=== PATIENT | male | born 1975 | race Caucasian/White ===

== ENCOUNTER 2020-01-23 15:29 | Emergency (ER) | payer OTHER, SELFPAY ==
[2020-01-23 15:41] VITALS: BP 133/82; PULSE 93; RESP 16; TEMP 37.2; O2SAT 100
--- NOTE | 2020-01-23 15:45 | ED.ABDPAIN ---
HPI - Abdominal Pain General Chief Complaint: Abdominal Pain Stated Complaint: Abd pain/diarrhea Time Seen by Provider: 01/23/20 15:51 Source: patient Mode of arrival: ambulatory Limitations: no limitations History of Present Illness HPI narrative: Josse baker a 44 yo male with a PMH of seasonal allergies who comes to express care with abdominal pain and diarrhea. Has had episodic abdominal pain and diarrhea over the last few months. States the pain is now gone in the left lower quadrant. He has not changed medications are is aware of any other changes that would cause diarrhea. Has not tried any medication Related Data Home Medications Medication Instructions Recorded Confirmed No Home Medications 01/23/20 01/23/20 Allergies Allergy/AdvReac Type Severity Reaction Status Date / Time No Known Allergies Allergy Verified 01/23/20 15:55 Review of Systems Review of Systems: Narrative: CONSTITUTIONAL: Denies fever, chills, sweats. EYES: Denies visual changes, redness, discharge. ENT: Denies rhinorrhea, congestion, sore throat, otalgia. CARDIOVASCULAR: Denies chest pain, palpitations, edema. RESPIRATORY: Denies dyspnea, wheezing, cough GASTROINTESTINAL: Denies abdominal pain, nausea, vomiting, has diarrhea. Intermittent left lower quadrant abdominal pain GENITOURINARY: Denies dysuria, hematuria, abnormal discharge SKIN: Denies rash or itching. NEUROLOGIC: Denies numbness, or focal weakness. PSYCHIATRIC: Denies anxiety or depression. PMFSH Family History Family History Other Hypertension Social History Social History (Updated 01/23/20 @ 16:00 by Veronica Moran CNP) Smoking packs per day: 1 Smoking cigarettes per day: 20.0 Smoking status: Current every day smoker Alcohol intake: never Comments At time of signature, I agree with nursing past medical, surgical, social and family history. There is no relevant family history pertinent to the presenting complaint. Exam Narrative: Exam Narrative: GENERAL: This is a well-nourished, well-developed patient, in mild distress. Patient is very anxious HEAD: normocephalic, atraumatic. EYES: Sclera clear/white. Vision is grossly intact. EARS: External ears normal, . Hearing grossly intact. NOSE: External nose normal without nasal discharge, nares without redness, no rhinorrhea. THROAT: Mucous membranes moist, NECK: Neck supple, CARDIOVASCULAR: Regular rate and rhythm without murmurs, gallops, or rubs. RESPIRATORY: Clear to auscultation. Breath sounds equal bilaterally. No wheezes, rales, or rhonchi. GASTROINTESTINAL: Abdomen soft, non-tender, no CVA tenderness; no left lower quadrant pain (as reported in CC) SKIN: warm, intact with no suspicious lesions or rash, good texture and turgor. NEURO: awake, alert, and oriented to person, place and time. There were no obvious focal neurologic abnormalities. Steady gait EXTREMITIES: Normal range of motion. BACK: Nontender without deformity Course Course Emergency Course: Patient denies dysuria does have a discussion about recurrent diarrhea and abdominal pain. Recommended patient follow-up with PCP and if becomes worse runs fever or develops intractable nausea vomiting to go to the ER Vital Signs Vital signs: Vital Signs Temperature 98.9 F 01/23/20 15:41 Pulse Rate 93 01/23/20 15:41 Respiratory Rate 16 01/23/20 15:41 Blood Pressure 133/82 01/23/20 15:41 Pulse Oximetry 100 01/23/20 15:41 Temperature 98.9 F 01/23/20 15:41 Pulse Rate 93 01/23/20 15:41 Respiratory Rate 16 01/23/20 15:41 Blood Pressure 133/82 01/23/20 15:41 Pulse Oximetry 100 01/23/20 15:41 MDM - Abdominal Pain Differential Diagnosis Differential diagnosis: Likely abdominal pain, constipation, diverticulitis, gastroenteritis, pancreatitis and other Discharge Plan Discharge Clinical Impression: Gastroenteritis Patient Disposition: H
== END 2020-01-23 16:05 | disposition home or self-care (01) ==
PROVIDERS: Emergency Provider Nurse Practitioner
DX: K52.9 Noninfective gastroenteritis and colitis, unspecified (principal); F17.210 Nicotine dependence, cigarettes, uncomplicated
CPT/HCPCS: 99211; G0463

== ENCOUNTER 2020-11-02 15:41 | Emergency (ER) | payer OTHER, SELFPAY ==
[2020-11-02 15:48] VITALS: BP 148/83; PULSE 109; RESP 18; TEMP 36.2; O2SAT 100
--- NOTE | 2020-11-02 16:20 | ED.EAR ---
HPI - Ear Problem General Chief complaint: Upper Respiratory Infection Stated complaint: head and ears stuffed and runny nose Time Seen by Provider: 11/02/20 16:15 Source: patient, RN notes reviewed and old records reviewed Mode of arrival: ambulatory Limitations: no limitations History of Present Illness HPI Narrative: 45 year old male who presents to [facility] care with complaints of head and ears feeling clogged with nasal drainage that is clear for the past 2 days. Patient also reports that his chest feels congested and his throat is sore. Patient states he does not know of any fever but states that he has had intermittent chills. He reports that he has taken decongestants, antihistamines and expectorants for his symptoms with no resolution. He states that his daughter was ill with similar symptoms. Patient states that he has had both Covid vaccines. MD Complaint: ear pain and other (congestion to ears and sinus, congestion of chest) Location: bilateral (pressure) Duration: constant Severity: moderate Relieving factors: nothing Exacerbating factors: nothing Discharge from ear: Reports no Associated symptoms ear: rhinorrhea and other (ear pressure, facial pressure, fatigue, sore throat) Treatment prior to arrival: other (OTC decogestants and antihistamines and expectorants) Related Data Allergies Allergy/AdvReac Type Severity Reaction Status Date / Time No Known Allergies Allergy Verified 11/02/20 15:53 Review of Systems Review of Systems: Narrative: CONSTITUTIONAL: Unknown fever,positive chills, or sweats. EYES: Denies visual changes, redness, or discharge. ENT: Positive rhinorrhea, congestion, sore throat, and otalgia. CARDIOVASCULAR: Denies chest pain, palpitations, or edema. RESPIRATORY: Positive cough with congestion but denies dyspnea. GASTROINTESTINAL: Denies abdominal pain, nausea, vomiting, or diarrhea. GENITOURINARY: Denies dysuria or hematuria. SKIN: Denies rash or itching. MUSCULOSKELETAL: Denies back pain, joint pain, or myalgia. NEUROLOGIC: Denies headache, numbness, or weakness. PSYCHIATRIC: Denies anxiety or depression. All systems reviewed & are unremarkable except as noted in HPI and below PMFSH Past Medical History Medical History (Updated 11/02/20 @ 18:03 by Melva Macedo NP) Ear infection Seasonal allergies Surgical History Surgical History (Updated 11/02/20 @ 18:04 by Melva Macedo NP) History of appendectomy Family History Family History Other Hypertension Social History Social History (Updated 11/02/20 @ 18:05 by Melva Macedo NP) Smoking packs per day: 1 Smoking cigarettes per day: 20.0 Smoking status: Current every day smoker Alcohol intake: never Substance use: never Living arrangements: with family Gender identity (if verbalized by the patient): Male Comments At time of signature, agree with nursing past medical, surgical, social and family history. There is no relevant family history pertinent to the presenting complaint Exam Narrative: Exam Narrative: GENERAL: Well-appearing, well-nourished, and in no acute distress. HEAD: Normocephalic, atraumatic. EYES: PERRLA and EOMI. ENT: Nares red with rhinorrhea no epistaxis. Mucous membranes moist.TM's normal with dull light reflex, no ear drainage noted, throat red with no lesions or exudates some tonsillar enlargement. NECK: Supple.no lymphadenopathy CHEST: Clear to auscultation. No respiratory distress no wheezing or tachypnea, SAO2 100%on room air. HEART: Regular rate and rhythm. No murmur heard. Normal peripheral pulses. ABDOMEN: Soft, nontender, nondistended, normal active bowel sounds. EXTREMITIES: Normal range of motion. No edema. SKIN: Warm, dry, no rash. NEURO: No focal deficits. Alert and oriented x3. Course Vital Signs Vital signs: Vital Signs Temperature 36.2 C L 11/02/20 15:48 Pulse Rate 109 H 11/02/20 15:48 Respiratory Rat
== END 2020-11-02 16:35 | disposition home or self-care (01) ==
PROVIDERS: Emergency Provider Registered Nurse; PCP Internal Medicine
DX: R09.89 Other specified symptoms and signs involving the circulatory and respiratory systems (principal); J06.9 Acute upper respiratory infection, unspecified; F17.210 Nicotine dependence, cigarettes, uncomplicated
CPT/HCPCS: 87081; 87880; 99213; G0463

== ENCOUNTER 2021-04-29 16:42 | Emergency (ER) | payer OTHER, SELFPAY ==
[2021-04-29 17:00] VITALS: BP 136/88; PULSE 92; RESP 18; TEMP 37.1; O2SAT 98
--- NOTE | 2021-04-29 17:35 | ED.GENADULT ---
HPI - General Adult General Chief complaint: Upper Respiratory Infection Stated complaint: Sinus Pain Source: patient Mode of arrival: ambulatory Limitations: no limitations History of Present Illness HPI narrative: 45 y/o male. PMHx none reported. Presents to [facility] today with acute complaints of sinus congestion, maxillary facial pressure, and worsening nasal discharge in the past 1 week. He reports subtherapeutic relief to OTC remedies. No fever, chills. No cough, dyspnea, chest pain, edema. Client denies known ill contacts. He is without additional acute c/o illness upon PE. Related Data Allergies Allergy/AdvReac Type Severity Reaction Status Date / Time No Known Allergies Allergy Verified 04/29/21 17:28 Review of Systems Review of Systems: CONSTITUTIONAL: Denies fever, chills, sweats. EYES: Denies visual changes, redness, discharge. ENT: Positive rhinorrhea, congestion, facial pressure. No sore throat, otalgia. CARDIOVASCULAR: Denies chest pain, palpitations, edema. RESPIRATORY: Denies dyspnea, wheezing, cough GASTROINTESTINAL: Denies abdominal pain, nausea, vomiting, diarrhea. GENITOURINARY: Denies dysuria, hematuria, abnormal discharge SKIN: Denies rash or itching. MUSCULOSKELETAL: Denies acute back pain, joint pain, or myalgia. NEUROLOGIC: Denies numbness, or focal weakness. PSYCHIATRIC: Denies anxiety or depression. All systems reviewed & are unremarkable except as noted in HPI and below PMFSH Past Medical History Medical History Ear infection Seasonal allergies Surgical History Surgical History History of appendectomy Family History Family History Other Hypertension Social History Social History Smoking packs per day: 1 Smoking cigarettes per day: 20.0 Smoking status: Current every day smoker Alcohol intake: never Substance use: never Gender identity (if verbalized by the patient): Male Exam Narrative: GENERAL: This is a well-nourished, well-developed adult, in no apparent distress. HEAD: normocephalic, atraumatic. EYES: PERRL. Sclera clear/white. EARS: External ears normal, auditory canals clear and without drainage, TMs normal. NOSE: External nose normal. Positive Rhinorrhea, congestion. Maxillary facial pressure, no obstruction. THROAT: Mucous membranes moist, posterior pharynx clear. No exudates. NECK: Neck supple, non-tender without lymphadenopathy, masses or thyromegaly. CARDIOVASCULAR: Regular rate and rhythm without murmurs, gallops, or rubs. RESPIRATORY: Clear to auscultation. Breath sounds equal bilaterally. No wheezes, rales, or rhonchi. GASTROINTESTINAL: Abdomen soft, non-tender, nondistended. Bowel sounds are active. No guarding. SKIN: warm, intact with no suspicious lesions or rash, good texture and turgor. NEURO: Alert, active, and age appropriate. No focal neurologic deficits. Course Vital Signs Vital signs: Vital Signs Temperature 37.1 C 04/29/21 17:00 Pulse Rate 92 04/29/21 17:00 Respiratory Rate 18 04/29/21 17:00 Blood Pressure 136/88 04/29/21 17:00 Pulse Oximetry 98 04/29/21 17:00 Temperature 37.1 C 04/29/21 17:00 Pulse Rate 92 04/29/21 17:00 Respiratory Rate 18 04/29/21 17:00 Blood Pressure 136/88 04/29/21 17:00 Pulse Oximetry 98 04/29/21 17:00 Medical Decision Making MDM Narrative Medical decision making narrative: -OP POC, AVS, & Medication instructions reviewed. -Rest, fluids, may resume additional OTC remedies prn. -Suggest additional daily antihistamine for added benefit. -PCP F/U 1 WK. -ER W/Emergent health status changes. Pt agrees. Differential Diagnosis Differential Diagnosis: Differential Diagnosis: Consideration of the following conditions m
== END 2021-04-29 17:35 | disposition home or self-care (01) ==
PROVIDERS: Emergency Provider Nurse Practitioner Adult Health; PCP Internal Medicine
DX: J06.9 Acute upper respiratory infection, unspecified (principal); J01.00 Acute maxillary sinusitis, unspecified
CPT/HCPCS: 99213; G0463

== ENCOUNTER 2021-10-31 09:27 | Emergency (ER) | payer OTHER, SELFPAY ==
[2021-10-31 09:31] VITALS: BP 126/72; PULSE 104; RESP 20; TEMP 36.3; O2SAT 100
--- NOTE | 2021-10-31 09:37 | ED.URI ---
HPI - URI/Sore Throat General Chief Complaint: Upper Respiratory Infection Stated Complaint: head congestion w/ ear pain Time Seen by Provider: 10/31/21 09:48 Source: patient and RN notes reviewed Mode of arrival: ambulatory Limitations: no limitations History of Present Illness HPI Narrative: 45-year-old male presents with concern for 3-day history of sinus congestion and pressure, ear fullness and pressure. He denies ear pain or sinus pain. Denies sore throat, body aches, chills, fever, sweats, cough. Reports he took an [id number] sinus decongestant without relief. MD elicited complaint: nasal congestion and other (Ear pain) Related Data Allergies Allergy/AdvReac Type Severity Reaction Status Date / Time No Known Allergies Allergy Verified 07/19/21 15:10 Review of Systems Review of Systems: CONSTITUTIONAL: Reports malaise. Denies chills, sweats, or fever. EYES: Denies visual changes, redness, or discharge. ENT: Reports rhinorrhea, congestion, ear fullness. Denies sinus pain, otalgia and sore throat. CARDIOVASCULAR: Denies chest pain, palpitations, or edema. RESPIRATORY: Denies cough. Denies dyspnea. GASTROINTESTINAL: Denies abdominal pain, nausea, vomiting, diarrhea SKIN: Denies rash or itching. MUSCULOSKELETAL: Denies myalgia. NEUROLOGIC: Denies headache. All systems reviewed & are unremarkable except as noted in HPI and below PMFSH Past Medical History Medical History Ear infection Seasonal allergies Surgical History Surgical History History of appendectomy Family History Family History (System 07/19/21 @ 15:10 by Shay Leach) Other Hypertension Social History Social History (System 07/19/21 @ 15:10 by Shay Leach) Smoking packs per day: 1 Smoking cigarettes per day: 20.0 Smoking status: Current every day smoker Alcohol intake: never Substance use: never Gender identity (if verbalized by the patient): Male Comments At time of signature, agree with nursing past medical, surgical, social and family history. There is no relevant family history pertinent to the presenting complaint Exam Narrative: GENERAL: Non toxic appearing and in no acute distress. HEAD: Normocephalic EYES: PERRLA, conjunctivae clear ENT: Nares clear, turbinates unremarkable, clear discharge. Mucous membranes moist. TM pearly iraheta with sharp light reflex bilaterally; no tragal tenderness. Oropharynx not erythematous without lesions. Tonsils not enlarged and without exudate, no drooling, no hoarseness, no trismus, uvula midline. NECK: Supple. No lymphadenopathy CHEST: Clear to auscultation, breath sounds equal. No wheezing, rhonchi, rales, or stridor. No respiratory distress, speaks in full sentences. HEART: Regular rate and rhythm. No murmur heard. SKIN: Warm, dry, no rash. NEURO: Alert and oriented x3. PSYCH: Normal mood and affect Course Course Emergency Course: Patient is aware of diagnosis, understands and agrees to treatment plan. Anticipatory guidance given. Patient agrees to follow-up as directed and is aware of reasons to seek care at the emergency department. Portions of this record may have been created with voice recognition software Level of Care: Express Care Visit Vital Signs Vital signs: Vital Signs Temperature 97.3 F L 10/31/21 09:31 Pulse Rate 104 H 10/31/21 09:31 Respiratory Rate 20 10/31/21 09:31 Blood Pressure 126/72 10/31/21 09:31 Pulse Oximetry 100 10/31/21 09:31 Temperature 97.3 F L 10/31/21 09:31 Pulse Rate 104 H 10/31/21 09:31 Respiratory Rate 20 10/31/21 09:31 Blood Pressure 126/72 10/31/21 09:31 Pulse Oximetry 100 10/31/21 09:31 Reviewed. MDM - URI/Sore Throat MDM Narrative Medical decision making narrative: Differential diagnosis considered: Pacheco virus, strep pharyngitis, allergic rhinitis, upper respiratory tract infection, sin
== END 2021-10-31 10:06 | disposition home or self-care (01) ==
PROVIDERS: Emergency Provider Nurse Practitioner; PCP Internal Medicine
DX: U07.1 COVID-19 (principal); F17.210 Nicotine dependence, cigarettes, uncomplicated
CPT/HCPCS: 87426; 87804; 99213; C9803; G0463

== ENCOUNTER 2022-05-12 11:39 | Emergency (ER) | payer OTHER, SELFPAY ==
--- NOTE | ~2022-05-12 | XR_ITS ---
EXAMINATION: XR wrist LT min 3V DATE: 05/12/2022 12:05 INDICATION: Left wrist injury. TECHNIQUE: 4 views of left wrist were obtained. COMPARISON: None. FINDINGS: Bone alignment is normal. No fracture. There is mild osteoarthritis of first carpometacarpa l joint. IMPRESSION: 1. Mild osteoarthritis of first carpometacarpal joint. Reviewed, dictated and finalized at location [facility] [employer]
[2022-05-12 11:50] VITALS: BP 153/90; PULSE 100; RESP 16; TEMP 36.4; O2SAT 99
--- NOTE | 2022-05-12 12:48 | ED.UPPEXIN ---
HPI - Extremity Injury (Upper) General Chief Complaint: Extremity Injury, Upper Stated Complaint: pain in left wrist injury Time Seen by Provider: 05/12/22 12:44 Source: patient and RN notes reviewed Mode of arrival: ambulatory Limitations: no limitations History of Present Illness HPI narrative: 46-year-old male presents concern for left wrist pain after falling while roller skating 2 days ago. He reports he has pain when he flexes his wrist. He denies swelling, bruising, open scan, pain at rest. He denies any [id number] intervention MD complaint: injury to: left and wrist Related Data Allergies Allergy/AdvReac Type Severity Reaction Status Date / Time No Known Allergies Allergy Verified 07/19/21 15:10 Review of Systems Review of Systems: CONSTITUTIONAL: Denies malaise, chills, sweats, or fever. SKIN: Denies rash or itching, open skin, laceration, abrasion, redness, warmth, swelling. MUSCULOSKELETAL: Reports left wrist pain NEUROLOGIC: Denies numbness, weakness All systems reviewed & are unremarkable except as noted in HPI and below PMFSH Past Medical History Medical History Ear infection Seasonal allergies Surgical History Surgical History History of appendectomy Family History Family History (System 07/19/21 @ 15:10 by Shay Leach) Other Hypertension Social History Social History (System 07/19/21 @ 15:10 by Shay Leach) Smoking packs per day: 1 Smoking cigarettes per day: 20.0 Smoking status: Current every day smoker Alcohol intake: never Substance use: never Gender identity (if verbalized by the patient): Male Comments At time of signature, agree with nursing past medical, surgical, social and family history. There is no relevant family history pertinent to the presenting complaint Exam Narrative: GENERAL: Well-appearing, well-nourished, and in no acute distress. HEAD: Normocephalic, atraumatic. EYES: PERRLA, conjunctivae clear NECK: Supple. CHEST: Speaks in full sentences. No respiratory distress. HEART: Regular rate and rhythm. Normal and equal peripheral pulses. EXTREMITIES: Left wrist, hand, digits have normal strength and sensation, normal range of motion. No edema or ecchymosis. 5/5 strength with wrist and digit flexion and extension. Normal sensation with sensitivity to light touch and pain. No point tenderness. No open wounds, no skin tenting, no devitalized tissue or atrophy, no trophic changes, no obvious deformity, alignment normal, nearby joints and structures intact. Distal pulses palpable and equal bilaterally, skin warm, dry, pink. Capillary refill less than 3 seconds. SKIN: Warm, dry, no rash. NEURO: Alert and oriented x3. PSYCH: Normal mood and affect Course Course Emergency Course: Patient is aware of diagnosis, understands and agrees to treatment plan. Anticipatory guidance given. Patient agrees to follow-up as directed and is aware of reasons to seek care at the emergency department. Portions of this record may have been created with voice recognition software Level of Care: Express Care Visit Vital Signs Vital signs: Vital Signs Temperature 97.6 F 05/12/22 11:50 Pulse Rate 100 05/12/22 11:50 Respiratory Rate 16 05/12/22 11:50 Blood Pressure 153/90 H 05/12/22 11:50 Pulse Oximetry 99 05/12/22 11:50 Oxygen Delivery Room Air 05/12/22 11:50 Temperature 97.6 F 05/12/22 11:50 Pulse Rate 100 05/12/22 11:50 Respiratory Rate 16 05/12/22 11:50 Blood Pressure 153/90 H 05/12/22 11:50 Pulse Oximetry 99 05/12/22 11:50 Oxygen Delivery Room Air 05/12/22 11:50 Reviewed. Critical Care Time Critical Care Time Critical Care Time: No Discharge Plan Discharge Clinical Impression: Left wrist sprain Patient Disposition: Home, Self-Care Condition: Stable Instructions: Wrist Sprain (ED) [place]
== END 2022-05-12 13:02 | disposition home or self-care (01) ==
PROVIDERS: Emergency Provider Nurse Practitioner; PCP Internal Medicine
DX: S63.502A Unspecified sprain of left wrist, initial encounter (principal); F17.210 Nicotine dependence, cigarettes, uncomplicated; V00.121A Fall from non-in-line roller-skates, initial encounter; Y93.51 Activity, roller skating (inline) and skateboarding
CPT/HCPCS: 73110; 99213; G0463

== ENCOUNTER 2022-09-21 17:41 | Emergency (ER) | payer OTHER, SELFPAY ==
[2022-09-21 17:59] VITALS: BP 149/93; PULSE 100; RESP 20; TEMP 36.6; O2SAT 100
--- NOTE | 2022-09-21 18:32 | ED.GENADULT ---
HPI - General Adult General Chief complaint: Dental/Oral Stated complaint: Sinus Pain Source: patient Mode of arrival: ambulatory Limitations: no limitations History of Present Illness HPI narrative: Patient presents for evaluation of right-sided maxillary facial swelling since yesterday. He has overall poor dentition and states that he is in the process of getting some dental work performed. No fever, chills, nausea, vomiting, dental pain or trismus, problems handling secretions. He took a dose of his family members amoxicillin. He does smoke approximately 1 pack per day. Related Data Allergies Allergy/AdvReac Type Severity Reaction Status Date / Time No Known Allergies Allergy Verified 09/21/22 18:07 Review of Systems Review of Systems: CONSTITUTIONAL: Denies fever, chills, or sweats. EYES: Denies visual changes, redness, or discharge. ENT: Reports right-sided maxillary facial swelling. Denies rhinorrhea, congestion, sore throat, or otalgia. CARDIOVASCULAR: Denies chest pain, palpitations, or edema. RESPIRATORY: Denies cough or dyspnea. GASTROINTESTINAL: Denies abdominal pain, nausea, vomiting, or diarrhea. GENITOURINARY: Denies dysuria or hematuria. SKIN: Denies rash or itching. MUSCULOSKELETAL: Denies back pain, joint pain, or myalgia. NEUROLOGIC: Denies headache, numbness, dizziness, or weakness. PSYCHIATRIC: Denies anxiety or depression. [facility] Past Medical History Medical History Ear infection Seasonal allergies Surgical History Surgical History History of appendectomy Family History Family History Other Hypertension Social History Social History Smoking packs per day: 1 Smoking cigarettes per day: 20.0 Smoking status: Current every day smoker Alcohol intake: never Substance use: never Living arrangements: with family Gender identity (if verbalized by the patient): Male Exam Narrative: GENERAL: Well-appearing, well-nourished, and in no acute distress. HEAD: Normocephalic, atraumatic. EYES: PERRLA and EOMI. ENT: Nares clear, no rhinorrhea or epistaxis. Mucous membranes moist. Overall poor dentition. Multiple dental fractures with erosion down to the gumline. No visible or palpable abscess in the gumline. Oropharynx without tonsillar hypertrophy exudate or other lesions. Bilateral TMs pearly iraheta nonbulging. There is right-sided maxillary facial swelling. NECK: Supple. No adenopathy or masses. No carotid bruits or JVD CHEST: Clear to auscultation. No respiratory distress. No wheezes rales or rhonchi HEART: Regular rate and rhythm. No murmur heard. Normal peripheral pulses. ABDOMEN: Soft, nontender, nondistended, normal active bowel sounds. EXTREMITIES: Normal range of motion. No edema. SKIN: Warm, dry, no rash. NEURO: No focal deficits. Alert and oriented x3. PSYCH: Normal mood and affect. Course Course Emergency Course: This is a 46-year-old male who presented for evaluation of right-sided maxillary facial swelling. Believe his symptoms are dental in origin. Will cover with amoxicillin. Ibuprofen for pain and swelling. Follow-up with primary provider. Advised on smoking cessation. Go to the ER for facial swelling which is worsening or systemic signs of infection. Patient in agreement plan of care. Level of Care: Express Care Visit Vital Signs Vital signs: Vital Signs Temperature 36.6 C 09/21/22 17:59 Pulse Rate 100 09/21/22 17:59 Respiratory Rate 20 09/21/22 17:59 Blood Pressure 149/93 H 09/21/22 17:59 Pulse Oximetry 100 09/21/22 17:59 Oxygen Delivery Room Air 09/21/22 17:59 Temperature 36.6 C 09/21/22 17:59 Pulse Rate 100 09/21/22 17:59 Respiratory Rate 20 09/21/22 17:59 Blood Pressure 149/9
== END 2022-09-21 18:30 | disposition home or self-care (01) ==
PROVIDERS: Emergency Provider Nurse Practitioner; PCP Internal Medicine
DX: K02.9 Dental caries, unspecified (principal); F17.210 Nicotine dependence, cigarettes, uncomplicated
CPT/HCPCS: 99213; G0463

== ENCOUNTER 2024-04-26 16:58 | Emergency (ER) | payer OTHER, SELFPAY ==
[2024-04-26 17:10] VITALS: BP 152/83; PULSE 90; RESP 16; TEMP 36.9; O2SAT 98
[2024-04-26 17:23] VITALS: BP 152/83; PULSE 90; RESP 16; TEMP 36.9; O2SAT 98
[2024-04-26 17:28] LABS: EDSTREPNEGPOS1 Negative (Negative)
--- NOTE | 2024-04-26 17:37 | ED.URI ---
HPI - URI/Sore Throat General Chief Complaint: Upper Respiratory Infection Stated Complaint: cough/sore throat History of Present Illness HPI Narrative: 48-year-old male presented for complaint sore throat, cough, nasal congestion and ear pressure. Onset Over 1 week. Denies shortness of breath, wheezing nausea vomiting, diarrhea, fevers or chills. Smokes 1 ppd. Related Data Allergies Allergy/AdvReac Type Severity Reaction Status Date / Time No Known Allergies Allergy Verified 04/26/24 17:21 Review of Systems Review of Systems: CONSTITUTIONAL: Denies body aches, fever, chills, or sweats. EYES: Denies visual changes, redness, or discharge. ENT: reports rhinorrhea, congestion, sore throat, otalgia. CARDIOVASCULAR: Denies chest pain, palpitations, or edema. RESPIRATORY: reports cough Denies dyspnea. GASTROINTESTINAL: Denies abdominal pain, nausea, vomiting, or diarrhea. SKIN: Denies rash MUSCULOSKELETAL: Denies back pain, joint pain, or myalgia. NEUROLOGIC: Denies headache PMFSH Past Medical History Medical History Ear infection Seasonal allergies Surgical History Surgical History History of appendectomy Family History Family History Other Hypertension Social History Social History Smoking packs per day: 1 Smoking cigarettes per day: 20.0 Smoking status: Current every day smoker Alcohol intake: never Substance use: never Living arrangements: with family Gender identity (if verbalized by the patient): Male Exam Narrative: GENERAL: MildlyIll-appearing, no acute distress. EYES: conjunctivae clear ENT: Mucous membranes moist. Right TM pearly iraheta with normal light reflex; left TM erythematous, bulging and intact; canal not erythematous, no drainage no tragal tenderness. Oropharynx not erythematous without lesions. No drooling, no hoarseness, no trismus, uvula midline. No tripod positioning, hot potato voice, or soft palate swelling. NECK: Supple. No lymphadenopathy CHEST: Clear to auscultation, breath sounds equal. No respiratory distress, speaks in full sentences. HEART: Regular rate and rhythm. No murmur heard. SKIN: Warm, dry, no rash. NEURO: Alert and oriented x3. PSYCH: flat affect, avoids eye contact Course Course Emergency Course: Patient is aware of diagnosis, understands and agrees to treatment plan. Anticipatory guidance given. Patient agrees to follow-up as directed and is aware of reasons to seek care at the emergency department. Portions of this record may have been created with voice recognition software Level of Care: Express Care Visit Vital Signs Vital signs: Vital Signs Temperature 98.4 F 04/26/24 17:10 Pulse Rate 90 04/26/24 17:10 Respiratory Rate 16 04/26/24 17:10 Blood Pressure 152/83 H 04/26/24 17:10 Pulse Oximetry 98 04/26/24 17:10 Oxygen Delivery Room Air 04/26/24 17:10 Temperature 98.4 F 04/26/24 17:23 Pulse Rate 90 04/26/24 17:23 Respiratory Rate 16 04/26/24 17:23 Blood Pressure 152/83 H 04/26/24 17:23 Pulse Oximetry 98 04/26/24 17:23 Oxygen Delivery Room Air 04/26/24 17:23 MDM - URI/Sore Throat MDM Narrative Medical decision making narrative: neg strep result reviewed with pt. discussed physical exam findings consistent with bronchitis and left AOM. Advise supportive treatments. Patient is appropriate for outpatient treatment and follow-up. Differential Diagnosis Differential diagnosis: Likely upper respiratory infection, viral infection and pharyngitis Lab Data Labs: Lab Results 04/26/24 Range/Units 17:13 POC Grp A Strep Screen Negative (Negative) Discharge Plan Discharge Clinical Impression: Bronchitis Otitis media Qualifiers: Otitis media type: suppurative Chronicity: acute Laterality: left Recurrence: non-recurrent Spontaneous tympanic membrane rupture: without spontaneous rupture Qualified Code(s): H66.002 - Acute suppurative otitis media without spontaneous rupture of ear drum, left ear Patient Disposition: Home, Self-Care Condition: Stable Instructions: Antibiotic Form, Ear Infection (ED) Additional Instructions: Rapid strep swab was negative today if symptoms are due to a viral illness, it is not treated with antibiotics. Viral symptoms can be present for up to 10-14 days. take antibiotic as directed for the ear infection Recommend Flonase spray and Zyrtec for sinus congestion Cough syrup may cause drowsiness; avoid driving or take it at night time. Tylenol every 8 hours as needed for pain/fever Soft foods, cool liquids, warm tea. Gargle with warm saltwater twice a day. Chloraseptic spray and throat lozenges. Rest and stay hydrated. --Follow up with your PCP --Go to the ER immediately if you cannot swallow your saliva, trouble breathing/wheezing, throat swelling, pain is persistent and severe Prescriptions: New prednisone 20 mg tablet 40 mg PO DAILY 5 Days Qty: 10 0RF amoxicillin-pot clavulanate 875-125 mg tablet 1 tablet PO Q12H 7 Days Qty: 14 0RF Follow-up/Referrals: Eliseo,Sergio Corey MD [Primary Care Provider] -
== END 2024-04-26 17:49 | disposition home or self-care (01) ==
PROVIDERS: Emergency Provider Nurse Practitioner Family; PCP Internal Medicine
DX: J40 Bronchitis, not specified as acute or chronic (principal); H66.002 Acute suppurative otitis media without spontaneous rupture of ear drum, left ear; F17.210 Nicotine dependence, cigarettes, uncomplicated
CPT/HCPCS: 87081; 87880; 99213; G0463

== ENCOUNTER 2024-07-19 13:37 | Emergency (ER) | payer OTHER, SELFPAY ==
[2024-07-19 13:49] VITALS: BP 159/68; PULSE 132; RESP 20; TEMP 37.7; O2SAT 96
--- OUTSIDE RECORDS SUMMARY | 2024-07-19 14:11 | XMS_ITS | Referral Summary ---
Author Organization [facility] Office Building [address] Address [address] [place] [address] Care Team Providers Care Nightman Name Role Phone Sergio Gomes MD Primary Care Provider Allergies No known active allergies Medications No known medications Active Problems Problem Noted Date Diagnosed Date Encounter for screening for malignant neoplasm o f colon 09/01/2023 History of 2019 novel coronavirus disease (COVID -19) 11/21/2021 Edema leg 11/21/2021 Tobacco abuse 11/15/2020 Acute maxillary sinusitis 05/09/2015 Overview (09/25/2016): Acute maxillary sinusitis, recurrence not specified Anxiety 11/05/2013 Overview (09/25/2016): Anxiety Atopic rhinitis 11/05/2013 Overview (09/26/2016): Allergic rhinitis Male erectile disorder 11/05/2013 Overview (09/26/2016): Erectile dysfunction 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 Insomnia 10/11/2012 Overview (09/26/2016): Insomnia Immunizations Name Administration Dates Next Due Influenza, Quadrivalent, Spl it, Preservative Free, Intramuscular 03/28/2020 Influenza, Unspecified 04/13/2023(Deferr ed: Patient Refused),03/22/2021(Deferred: Patient Refused),02/15/2021(Deferred: Patient Refused) Ivonne (Jojo&Jojo) SARS-CoV-2 Vaccination 08/27/2020 Tdap 06/17/2010 Social History Tobacco Use Types Packs/Day Years Used Date Smoking Tobacco: Every Day Cigarettes Smokeless Tobacco: Never Tobacco Cessation:Ready to Q uit: Not Asked; Counseling Given: Not Answered Alcohol Use Standard Drinks/Week Comments No 0 (1 standard drink = 0.6 oz pur e alcohol) AUDIT-C Answer Date Recorded Q1: How often do you have a drink containing alc ohol? Never 10/26/2023 Average Number of Drinks Not on file 024 Q3: How often do you have si x or more drinks on one occasion? Never 10/26/2023 PHQ-2 Answer Date Recorded PHQ-2 Total Score (If total score is 3 or more points, staff should administer the PHQ-9) 0 02/15/2024 Personal Safety Answer Date Recorded Have you ever been in or are you currently in a harmful physical or emotional relationship or is someone making you feel afraid or unsafe? 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 Gender Identity Male 09/17/2023 2:57 PM CDT Sexual Orientation Straight 09/17/2023 2: 57 PM CDT Last Filed Vital Signs Vital Sign Reading Time Taken Comments Blood Pressure 114/70 02/15/2024 3:38 PM CDT Pulse 76 02/15/2024 3:38 PM CDT Temperature 36.3 ??C (97.3 ??F) 02/15/2024 3:38 PM CD T Respiratory Rate 16 02/15/2024 3:38 PM CDT Oxygen Saturation 98% 02/15/2024 3:38 PM CDT Inhaled Oxygen Concentration - - Weight 90.7 kg (200 lb) 02/15/2024 3:38 PM CDT Height 172.7 cm (5' 8 ) 02/15/2024 3:38 PM CDT Body Mass Index 30.41 02/15/2024 3:38 PM CDT Plan of Treatment Not on file Procedures Procedure Name Priority Date/Time Associated Diagnosis Comments SCAN - LABS 04/26/2024 COLONOSCOPY 10/26/2023 10:14 AM CDT from Last 3 Months or Most Recently Relevant to Health Maintenance Results * SCAN - LABS (04/26/2024) us Sergio Gomes MD Edited Result - Final * Colonoscopy (10/26/2023 10:14 AM CDT) Anatomical Region Laterality Modality Other Narrative Procedure Note Jeff Curry MD - 10/26/2023 10:14 AM CDT [facility] Patient Name: Josse Gray Procedure Date: 10/26/2023 10:14 AM Date of : 1975 Admit Type: Outpatient Age: 47 Gender: Male Note Status: Finalized Attending MD: Jeff Curry M.D. Procedure Date: 10/26/2023 Procedure: Colonoscopy Indications: Screening for colorectal malignant neoplasm, Thisis the patient's first colonoscopy Providers: Jeff Curry M.D., Wilma Morgan SURVEY WORKER (Anesthesia Staff), Claudia Batres RN, Dionte, Roofing Sales Representative Referring MD: Sergio Gomes M.D. Medicines: Monitored Anesthesia Care Complications: No immediate complications. Estimated Blood Loss: Estimated blood loss: none. Procedure: Pre-Anesthesia Assessment: - Airway Examination: normal oropharyngeal airwayand neck mobility. - Respiratory Examination: clear to auscultation. - ASA Grade Assessment: II - A patient with mild systemic disease. - After reviewing the risks and benefits, thepatient was deemed in satisfactory condition to undergo the procedure. - The risks and benefits of the procedure and the sedation options and risks were discussed with the patient. All questions were answered and informed consent was obtained. After I obtained informed consent, the scope was passed under direct vision. Throughout theprocedure, the patient's blood pressure, pulse, and oxygen saturations were monitored continuously. The scopewas passed under direct vision. The Colonoscope was introduced through the anus and advanced to the the cecum, identified by the appendiceal orifice, ileocecal valve and palpation. The colonoscopy was performed with ease. The patient tolerated the procedure well. The quality of the bowelpreparation was good. The quality of the bowel preparation was evaluated using the BBPS ([place] Bowel Preparation Scale) with scores of: Right Colon = 3, Transverse Colon = 3 and Left Colon = 3 (entire mucosa seenwell with no residual staining, small fragments of stoolor opaque liquid). The total BBPS score equals 9. The bowel preparation used was Clenpiq via split dose instruction. Bowel prep was administered using asplit dose. Findings: The perianal and digital rectal examinations were normal. The retroflexed view of the distal rectum and anal verge was normaland showed no anal or rectal abnormalities. A few medium-mouthed diverticula were found in the sigmoid colon. Impression: - The entire examined colon is normal. - The distal rectum and anal verge are normal on retroflexion view. - No specimens collected. Recommendation: - Discharge patient to home (ambulatory). - Repeat colonoscopy in 10 years for screening purposes. Procedure Code(s): --- Professional --- G0121, Colorectal cancer screening; colonoscopy on individual not meeting criteria for high risk Diagnosis Code(s): --- Professional --- Z12.11, Encounter for screening for malignantneoplasm of colon CPT copyright 2020 [employer]. All rights reserved. The codes documented in this report are preliminary and upon sheet rock hanger reviewmay be revised to meet current compliance requirements. Electronically signed by Jeff Curry MD Jeff Curry M.D. 10/26/2023 10:51:57 AM Number of Addenda: 0 Note Initiated On: 10/26/2023 10:14 AM Jeff Curry MD ENDOSCOPY PROCEDURES Final Resul t from Last 3 Months or Most Recently Relevant to Health Maintenance Insurance [facility] Care Teams Nightman Relationship Specialty Start Date End Date Sergio Gomes MD PCP - General Internal Medicine 11/15/20
--- OUTSIDE RECORDS SUMMARY | 2024-07-19 14:11 | XMS_ITS | Clinical Summary ---
Author Organization [facility] Address [address] [place] [address] Phone Care Team Providers Care Stock Drier Tender Name Role Phone Sergio Gomes MD Primary Care Provider Allergies No known active allergies Medications No known medications Immunizations Immunization Administration Dates Next Due Influenza Vaccine, Quadrivalent, PF 03/12/2022,1 TDAP Vaccine 06/17/2010 Social History Tobacco Use Types Packs/Day Years Used Date Smoking Tobacco: Every Day Cigarettes Smokeless Tobacco: Never Alcohol Use Standard Drinks/Week Comments Not Currently 0 (1 standard drink = 0.6 oz pur e alcohol) Sexually Active Control Partners Comments Not Currently Sex and Gender Information Value Date Recorded Sex Assigned at Not on file Legal Sex Male 10:03 AM CDT Gender Identity Not on file Sexual Orientation Not on file Last Filed Vital Signs Vital Sign Reading Time Taken Comments Blood Pressure 139/79 10/09/2023 9:50 AM CDT Pulse 99 10/09/2023 9:50 AM CDT Temperature - - Respiratory Rate 20 10/09/2023 9:50 AM CDT Oxygen Saturation 99% 10/09/2023 9:50 AM CDT Inhaled Oxygen Concentration - - Weight 85.3 kg (188 lb) 10/09/2023 9:50 AM CDT Height 172.7 cm (5' 8 ) 10/09/2023 9:50 AM CDT Body Mass Index 28.59 10/09/2023 9:50 AM CDT Plan of Treatment Health Maintenance Due Date Last Done Comments Hepatitis C Virus (HCV) Screening 1975 Hepatitis B Immunization (1 of 3 - 19+ 3-dose series) 11/02/1995 Pneumococcal Immunization Combined (1 of 2 - PCV) 11/02/1995 Td Immunization Every 10 Years (Adults With 1 Tdap) 06/17/2020 06/17/2010 Colonoscopy 2021 Colorectal Cancer Screening 2021 Influenza Immunization (#1) 02/21/202402/21, 03/28/2020 SARS-COV-2 Immunization (2 - season) 2024 08/27/2020 Respiratory Syncytial Virus (RSV) Immunization (Adult) (1 - 1-dose 75+ series) 11/02/2051 TdaP Immunization Discontinued 06/17/2010 Meningococcal Immunization (ACWY) Aged Out No longer eligible based on patient's age to complete this topic Rotavirus Immunization Aged Out No lo nger eligible based on patient's age to complete this topic Insurance MEDICAID [place] Care Teams Stock Drier Tender Relationship Specialty Start Date End Date Sergio Gomes MD [address] [facility] [address] [place] [id number] PCP - General Internal Medicine 10/09/23
--- OUTSIDE RECORDS SUMMARY | 2024-07-19 14:11 | XMS_ITS | Clinical Summary ---
Author Organization [facility] Medical Office Building [facility] Address [address] [place] [address] Care Team Providers Care Stemmer Machine Name Role Phone Sergio Gomes MD Primary [...] Patient Refused),03/22/2021(Deferred: Patient Refused),02/15/2021(Deferred: Patient Refused) Ivonne (J&J) SARS-CoV-2 Vaccination 08/27/2020 Tdap 06/17/2010 Surgical History Surgery Date Site/Laterality Comments APPENDECTOMY 06/22/2015 - 06/21/2016 aprox. 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 Gender Identity Male 09/17/2023 2:57 PM CDT Sexual Orientation Straight 09/17/2023 2: 57 PM CDT Obstetrics History Last Filed Vital Signs Vital Sign Reading [...] 02/15/2024 3:38 PM CDT Plan of Treatment Health Maintenance Due Date Last Done Comments Hepatitis C Screening 1975 Pneumococcal vaccine <65 (1 of 2 - PCV) 1982 Hepatitis B Screening 1994 DTaP/Tdap/Td Vaccine (2 - Td or Tdap) 06/17/2020 06/17/2010 Covid-19 Vaccine (2 - 2023-2 5 season) 2024 08/27/2020 Influenza Vaccine (#1) 2024 03/28/2020 Depression Screening 02/14/2025 02/15/2024, 11/21/2021, 02/15/2021, Additional history exists Regular Well Visit/Exam 18-64 02/14/2025 02/15/2024, 11/21/2021 Colon Cancer Screening-Colonoscopy 10/25/20332023 Procedures Procedure Name Priority Date/Time Associated Diagnosis [...] Curry MD - 10/26/2023 10:14 AM CDT - [facility] Endoscopy Lab Patient Name: Josse Gray Procedure Date: 10/26/2023 10:14 AM Date of : 1975 Admit Type: Outpatient Age: 47 Gender: Male Note Status: Finalized Attending MD: Jeff Curry M.D. Procedure Date: 10/26/2023 Procedure: Colonoscopy Indications: Screening for colorectal malignant neoplasm, Thisis the patient's first colonoscopy Providers: Jeff Curry M.D., Wilma Morgan CRNA (Anesthesia Staff), Claudia Batres RN, [facility], Director Organizational Referring MD: Sergio Gomes M.D. Medicines: Monitored [...] bowel preparation was evaluated using the BBPS ([place] Bowel Preparation Scale) with scores of: Right [...] for malignantneoplasm of colon CPT copyright 2020 [employer]. All rights reserved. The codes documented in this report are preliminary and upon associate engineer reviewmay be revised to meet current compliance requirements. Electronically signed by Jeff Curry MD Jeff Curry M.D. 10/26/2023 10:51:57 AM Number of Addenda: 0 Note Initiated On: 10/26/2023 10:14 AM Jeff Curry MD ENDOSCOPY PROCEDURES Final Resul t from Last 3 Months or Most Recently Relevant to Health Maintenance Insurance [facility] Care Teams Stemmer Machine Relationship Specialty Start Date End Date Sergio Gomes MD PCP - General Internal Medicine 11/15/20
[2024-07-19 14:39] LABS: EDCOVIDSCREEN Negative (Negative); EDINFLUASCREEN Positive (Negative); EDINFLUBSCREEN Negative (Negative)
--- NOTE | 2024-07-19 15:11 | ED_ITS ---
HPI - General Adult General Chief complaint: Upper Respiratory Infection Stated complaint: Flu Symptoms Source: patient Mode of arrival: ambulatory Limitations: no limitations History of Present Illness HPI narrative: Patient presents for evaluation of sick symptoms for last 2-3 days. Symptoms include sinus congestion, cough, chills and generally not feeling well. He denies fever, sore throat, otalgia, nausea, vomiting or diarrhea. His daughter recently tested positive for influenza. He smokes 1/2 ppd. He has been taking mucinex and another OTC cough medication. Related Data Allergies Allergy/AdvReac Type Severity Reaction Status Date / Time No Known Allergies Allergy Verified 04/26/24 17:21 Review of Systems Review of Systems: CONSTITUTIONAL: Reports chills. Denies fever or sweats. EYES: Denies visual changes, redness, or discharge. ENT: Reports sinus congestion and nasal drainage CARDIOVASCULAR: Denies chest pain, palpitations, or edema. RESPIRATORY: Reports cough. Denies shortness of breath. GASTROINTESTINAL: Denies abdominal pain, nausea, vomiting, or diarrhea. GENITOURINARY: Denies dysuria or hematuria. SKIN: Denies rash or itching. MUSCULOSKELETAL: Denies back pain, joint pain, or myalgia. NEUROLOGIC: Denies headache, numbness, dizziness, or weakness. PSYCHIATRIC: Denies anxiety or depression. [facility] Past Medical History Medical History Ear infection Seasonal allergies Surgical History Surgical History History of appendectomy Family History Family History Other Hypertension Social History Social History Smoking packs per day: 0.5 Smoking cigarettes per day: 10.0 Smoking status: Current every day smoker Alcohol intake: never Substance use: never Living arrangements: with family Gender identity (if verbalized by the patient): Male Exam Narrative: GENERAL: Appears acutely ill but nontoxic. He is in no acute distress. HEAD: Normocephalic, atraumatic. EYES: PERRLA and EOMI. ENT: Nares clear, no rhinorrhea or epistaxis. Mucous membranes moist. Oropharynx without tonsillar hypertrophy exudate or other lesions. Bilateral TMs pearly iraheta nonbulging NECK: Supple. No adenopathy or masses. No carotid bruits or JVD CHEST: Clear to auscultation. No respiratory distress. No wheezes rales or rhonchi HEART: Regular rate and rhythm. No murmur heard. Normal peripheral pulses. ABDOMEN: Soft, nontender, nondistended, normal active bowel sounds. EXTREMITIES: Normal range of motion. No edema. SKIN: Warm, dry, no rash. NEURO: No focal deficits. Alert and oriented x3. PSYCH: Normal mood and affect. Course Course Emergency Course: This is a 48-year-old male who presented for evaluation of sick symptoms. COVID negative. Influenza B negative. Influenza A positive. Will treat with Tamiflu. Increase hydration. Recommend smoking cessation. Increase hydration. [id number] agents for symptom management. Follow up with primary provider. Go to the ER for worsening symptoms. Patient in agreement with plan of care. Level of Care: Express Care Visit Vital Signs Vital signs: Vital Signs Temperature 37.7 C H 07/19/24 13:49 Pulse Rate 132 H 07/19/24 13:49 Respiratory Rate 07/19/24 13:49 Blood Pressure 159/68 H 07/19/24 13:49 Pulse Oximetry 96 07/19/24 13:49 Oxygen Delivery Room Air 07/19/24 13:49 Temperature 37.7 C H 07/19/24 13:49 Pulse Rate 132 H 07/19/24 13:49 Respiratory Rate 07/19/24 13:49 Blood Pressure 159/68 H 07/19/24 13:49 Pulse Oximetry 96 07/19/24 13:49 Oxygen Delivery Room Air 07/19/24 13:49 Medical Decision Making Vital Signs Vital Signs: Vital Signs Temperature 37.7 C H 07/19/24 13:49 Pulse Rate 132 H 07/19/24 13:49 Respiratory Rate 07/19/24 13:49 Blood Pressure 159/68 H 07/19/24 13:49 Pulse Oximetry 96 07/19/24 13:49 Oxygen Delivery Room Air 07/19/24 13:49 Temperature 37.7 C H 07/19/24 13:49 Pulse Rate 132 H 07/19/24 13:49 Respiratory Rate 20 07/19/24 13:49 Blood Pressure 159/68 H 07/19/24 13:49 Pulse Oximetry 96 07/19/24 13:49 Oxygen Delivery Room Air 07/19/24 13:49 Lab Data Labs: Lab Results 07/19/24 Range/Units 14:37 POC Influenza A Ag Positive (Negative) POC Influenza B Ag Negative (Negative) POC SARS CoV-2 Ag Negative (Negative) Discharge Plan Discharge Clinical Impression: Influenza A Patient Disposition: Home, Self-Care Condition: Stable Instructions: Antibiotic Form, Influenza (ED) Patient Language: Sierra Leonean Prescriptions: New oseltamivir [Tamiflu] 75 mg capsule 75 mg PO Q12H 5 Days Qty: 10 0RF Follow-up/Referrals: Eliseo,Sergio Corey MD [Primary Care Provider] - Time of Disposition: 15:07
== END 2024-07-19 15:11 | disposition home or self-care (01) ==
PROVIDERS: Emergency Provider Nurse Practitioner; PCP Internal Medicine
DX: J10.1 Influenza due to other identified influenza virus with other respiratory manifestations (principal); Z20.822 Contact with and (suspected) exposure to COVID-19; F17.210 Nicotine dependence, cigarettes, uncomplicated
CPT/HCPCS: 87426; 87804; 99213; G0463

== ENCOUNTER 2024-11-15 14:43 | Emergency (ER) | payer OTHER, SELFPAY ==
--- NOTE | 2024-11-15 14:46 | ED_ITS ---
HPI - URI/Sore Throat General Chief Complaint: Upper Respiratory Infection Stated Complaint: congestion,bilateral ear discomfort Time Seen by Provider: 11/15/24 14:46 Source: patient Mode of arrival: ambulatory Limitations: no limitations History of Present Illness HPI Narrative: Josse is a 49-year-old male patient presenting to the clinic today with complaints cough, nasal congestion, and bilateral ear pain x3 days. He reports no known fevers, chills, body aches. Denies shortness of breath or chest pain. Denies sore throat. Related Data Allergies Allergy/AdvReac Type Severity Reaction Status Date / Time No Known Allergies Allergy Verified 04/26/24 17:21 Review of Systems Review of Systems: Pertinent positives per HPI. Patient denies any fever, chills, rash, headache, visual changes, dizziness, shortness of breath, chest pain, palpitations, naus ea, vomiting, diarrhea, constipation, abdominal pain, or any urinary issues. PMFSH Past Medical History Medical History Ear infection Seasonal allergies Surgical History Surgical History History of appendectomy Family History Family History Other Hypertension Social History Social History Smoking packs per day: 0.5 Smoking cigarettes per day: 10.0 Smoking status: Current every day smoker Alcohol intake: never Substance use: never Living arrangements: with family Gender identity (if verbalized by the patient): Male Comments At the time of my signature, I reviewed and agree with the nursing past medical, surgical, social, and family history. There is no relevant family history pertinent to the patient complaint. Exam Narrative: General: Well-developed, well nourished, in no apparent distress Head: Normocephalic, atraumatic Eyes: Pupils equally round and reactive to light bilaterally, EOM intact, sclera and conjunctive clear, no discharge, lids normal Ears: Right TMs intact and clear, left TM intact, bulging, red, ear canals clear, no drainage, grossly hearing normal. Nose: Nares patent, clear nasal discharge, moderate inflammation, no sinus tenderness. Mouth: Oral pharynx without lesions or masses, good dentition, MMM. Neck: Supple, trachea midline, no enlargement of anterior or posterior cervical nodes, no thyroid masses or goiter palpable. Cardio: Regular rate and rhythm, s1 and s2 normal, no murmur appreciated. Resp: Clear to auscultation bilaterally, no rhonchi, rales, wheezing or rubs Course Course Emergency Course: Portions of this record may have been created with voice recognition software. Level of Care: Express Care Visit Vital Signs Vital signs: Vital Signs Temperature 36.6 C 11/15/24 14:54 Pulse Rate 114 H 11/15/24 14:54 Respiratory Rate 16 11/15/24 14:54 Blood Pressure 147/110 H 11/15/24 14:54 Pulse Oximetry 100 11/15/24 14:54 Oxygen Delivery Room Air 11/15/24 14:54 Temperature 36.6 C 11/15/24 14:54 Pulse Rate 114 H 11/15/24 14:54 Respiratory Rate 16 11/15/24 14:54 Blood Pressure 147/110 H 11/15/24 14:54 Pulse Oximetry 100 11/15/24 14:54 Oxygen Delivery Room Air 11/15/24 14:54 Vital signs reviewed MDM - URI/Sore Throat MDM Narrative Medical decision making narrative: At the time of visit patient is resting comfortably on the exam table. Patient appears to be nontoxic. Plan: I suspect patient has URI with left otitis media. Prescription for prednisone and amoxicillin was sent to the pharmacy. Supportive measures were discussed with the patient and they voiced understanding discharge instructions and agrees to treatment plan. Return precautions reviewed Differential Diagnosis Differential diagnosis: Likely upper respiratory infection, otitis media, sinusitis, viral infection, bronchitis, influenza, pharyngitis and other (COVID) Discharge Plan Discharge Clinical Impression: Acute left otitis media Upper respiratory infection Qualifiers: URI type: unspecified URI Qualified Code(s): J06.9 - Acute upper respiratory infection, unspecified Patient Disposition: Home Condition: Stable Instructions: Antibiotic Form, Ear Infection (ED), Cold Symptoms (ED) Additional Instructions: Take prescription medications only as prescribed-amoxicillin and prednisone Increase fluids and stay well hydrated Tylenol/motrin for pain/fever Flonase and OTC antihistamines as directed Vicks vapor rub to open sinuses Sinus rinses for congestion Cepacol spray, cough drops, throat lozenges, warm tea with honey/lemon, gargle salt water to soothe throat BRAT diet for diarrhea Clear liquids x 24 hours then advance as tolerated for nausea/vomiting Go to the ED if you develop a worsening in your condition- high fever not controlled by Tylenol or Motrin, dehydration, weakness, lethargy, shortness of breath, or chest pain. Follow up with your PCP in 3-5 days if symptoms persist. Patient Language: Belizean Prescriptions: New prednisone 20 mg tablet 40 mg PO DAILY 5 Days Qty: 10 0RF amoxicillin 875 mg tablet 875 mg PO Q12H 7 Days Qty: 14 0RF Follow-up/Referrals: Eliseo,Sergio Corey MD [Primary Care Provider] - Stand Alone Forms: Work/School Release IP Time of Disposition: 15:15 Quality NIHSS Nursing Documentation ED NIHSS nursing documentation: reviewed/agree
--- OUTSIDE RECORDS SUMMARY | 2024-11-15 14:46 | XMS_ITS | Clinical Summary ---
Author Organization [facility] Address [address] [place] [address] Phone Care Team Providers Care Rn Neurology Name Role Phone Sergio Gomes MD Primary [...] 9:50 AM CDT Height 172.7 cm (5' 8) 10/09/2023 9:50 AM CDT Body Mass Index [...] this topic Insurance MEDICAID [place] Care Teams Rn Neurology Relationship Specialty Start Date End Date Sergio Gomes MD [address] [facility] [address] [place] [id number] PCP - General Internal Medicine 10/09/23
--- OUTSIDE RECORDS SUMMARY | 2024-11-15 14:46 | XMS_ITS | Referral Summary ---
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 Gender Identity Male 09/17/2023 2:57 PM CDT Sexual Orientation Straight 09/17/2023 2: 57 PM CDT Last Filed Vital Signs Vital Sign Reading Time Taken Comments Blood Pressure 114/70 02/15/2024 3:38 PM CDT Pulse 76 02/15/2024 3:38 PM CDT Temperature 36.3 C (97.3 F) 02/15/2024 3:38 PM CDT Respiratory Rate 16 02/15/2024 3:38 PM CDT Oxygen Saturation 98% 02/15/2024 3:38 PM CDT Inhaled Oxygen Concentration - - Weight 90.7 kg (200 lb) 02/15/2024 3:38 PM CDT Height 172.7 cm (5' 8) 02/15/2024 3:38 PM CDT Body Mass Index 30.41 02/15/2024 3:38 PM CDT Plan of Treatment Not on file Procedures Procedure Name Priority Date/Time Associated Diagnosis Comments COLONOSCOPY 10/26/2023 10:14 AM CDT from Last 3 Months or Most Recently Relevant to Health Maintenance Results * Colonoscopy (10/26/2023 10:14 AM CDT) Anatomical Region Laterality Modality Other Narrative Procedure Note Jeff Curry MD - 10/26/2023 10:14 AM CDT [facility] Patient Name: Josse Gray Procedure Date: 10/26/2023 10:14 AM Date of : 1975 Admit Type: Outpatient Age: 47 Gender: Male Note Status: Finalized Attending MD: Jeff Curry M.D. Procedure Date: 10/26/2023 Procedure: Colonoscopy Indications: Screening for colorectal malignant neoplasm, Thisis the patient's first colonoscopy Providers: Jeff Curry M.D., Wilma Morgan CRNA (Anesthesia Staff), Claudia Batres RN, Dionte, Resin Maker Referring MD: Sergio Gomes M.D. Medicines: Monitored [...] bowel preparation was evaluated using the BBPS ([place] Bowel Preparation Scale) with scores of: Right [...] for malignantneoplasm of colon CPT copyright 2020 [employer]. All rights reserved. The codes documented in this report are preliminary and upon electron gun assembler reviewmay be revised to meet current compliance requirements. Electronically signed by Jeff Curry MD Jeff Curry M.D. 10/26/2023 10:51:57 AM Number of Addenda: 0 Note Initiated On: 10/26/2023 10:14 AM Jeff Curry MD ENDOSCOPY PROCEDURES Final Resul t from Last 3 Months or Most Recently Relevant to Health Maintenance Insurance [facility] Care Teams Cashier Ticket Selling Relationship Specialty Start Date End Date Sergio Gomes MD PCP - General Internal Medicine 11/15/20
--- OUTSIDE RECORDS SUMMARY | 2024-11-15 14:46 | XMS_ITS | Clinical Summary ---
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 Gender Identity Male 09/17/2023 2:57 PM CDT [...] Last Done Comments Hepatitis C Screening 1975 Hepatitis B Screening 1994 Pneumococcal vaccine <65 (1 of 2 - PCV) 11/02/1995 DTaP/Tdap/Td Vaccine (2 - Td or Tdap) 06/17/2020 06/17/2010 Covid-19 Vaccine ( - 2023-2 5 season) 2024 08/27/2020 Depression Screening 02/14/2025 02/15/2024, 11/21/2021, 02/15/2021, Additional history exists Regular Well Visit/Exam 18-64 02/14/2025 02/15/2024, 11/21/2021 Influenza Vaccine (Season Ended) 2025 03/28/20 20 Colon Cancer Screening-Colonoscopy 10/25/20332023 Procedures Procedure Name Priority Date/Time Associated Diagnosis Comments COLONOSCOPY 10/26/2023 10:14 AM CDT from Last 3 Months or Most Recently Relevant to Health Maintenance Results * Colonoscopy (10/26/2023 10:14 AM CDT) Anatomical Region Laterality Modality Other Narrative Procedure Note Jeff Curry MD - 10/26/2023 10:14 AM CDT [facility] Endoscopy Lab Patient Name: Josse Gray Procedure Date: 10/26/2023 10:14 AM Date of : 1975 Admit Type: Outpatient Age: 47 Gender: Male Note Status: Finalized Attending MD: Jeff Curry M.D. Procedure Date: 10/26/2023 Procedure: Colonoscopy Indications: Screening for colorectal malignant neoplasm, Thisis the patient's first colonoscopy Providers: Jeff Curry M.D., Wilma Morgan CRNA (Anesthesia Staff), Claudia Batres RN, Dionte, Charge Out Clerk Referring MD: Sergio Gomes M.D. Medicines: Monitored [...] bowel preparation was evaluated using the BBPS ([place] Bowel Preparation Scale) with scores of: Right [...] in this report are preliminary and upon sales service representative reviewmay be revised to meet current compliance requirements. Electronically signed by Jeff Curry MD Jeff Curry M.D. 10/26/2023 10:51:57 AM Number of Addenda: 0 Note Initiated On: 10/26/2023 10:14 AM Jeff Curry MD ENDOSCOPY PROCEDURES Final Resul t from Last 3 Months or Most Recently Relevant to Health Maintenance Insurance [facility] Care Teams Boardmarker Relationship Specialty Start Date End Date Sergio Gomes MD PCP - General Internal Medicine 11/15/20
[2024-11-15 14:54] VITALS: BP 147/110; PULSE 114; RESP 16; TEMP 36.6; O2SAT 100
== END 2024-11-15 15:20 | disposition home or self-care (01) ==
PROVIDERS: Emergency Provider Nurse Practitioner Family; PCP Internal Medicine
DX: H66.92 Otitis media, unspecified, left ear (principal); J06.9 Acute upper respiratory infection, unspecified; F17.210 Nicotine dependence, cigarettes, uncomplicated
CPT/HCPCS: 99213; G0463

== ENCOUNTER 2024-12-22 15:25 | Emergency (ER) | payer OTHER, SELFPAY ==
--- OUTSIDE RECORDS SUMMARY | 2024-12-22 15:27 | XMS_ITS | Clinical Summary ---
Author Organization [facility] Address [address] [place] [address] Phone Care Team Providers Care Church Organist Name Role Phone Sergio Gomes MD Primary [...] - PCV) 11/02/1995 Td Immunization Every 10 Yea rs (Adults With 1 Tdap) 06/17/2020 06/17/2010 Colonoscopy 2021 Colorectal Cancer Screening 2021 SARS-COV-2 Immunization ( - season) 2024 08/27/2020 Influenza Immunization (Seas on Ended) 2025 03/12/2022, 03/28/2020 Respiratory Syncytial Virus (RSV) Immunization (Adult) (1 - 1-dose 75+ series) 11/02/2051 TdaP Immunization Discontinued 06/17/2010 Human Papillomavirus (HPV) Immunization Aged Out No longer eligible based on patient's age to complete this topic Meningococcal Immunization (ACWY) Aged Out No longer eligible based on patient's age to complete this topic Rotavirus Immunization Aged Out No lo nger eligible based on patient's age to complete this topic Insurance MEDICAID [place] Care Teams Church Organist Relationship Specialty Start Date End Date Sergio Gomes MD [address] [facility] [address] [place], [place] [address], [place] [address] PCP - General Internal Medicine 10/09/23
--- OUTSIDE RECORDS SUMMARY | 2024-12-22 15:27 | XMS_ITS | Clinical Summary ---
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 Procedure Date: 10/26/2023 Procedure: Colonoscopy Indications: Screening for colorectal malignant neoplasm, Thisis the patient's first colonoscopy Providers: Jeff Curry M.D., Wilma Morgan CRNA (Anesthesia Staff), Claudia Batres RN, Dionte, Shuffle Board Operator Referring MD: Sergio Gomes M.D. Medicines: Monitored [...] bowel preparation was evaluated using the BBPS ([place] Bowel Preparation Scale) with scores of: Right [...] for malignantneoplasm of colon CPT copyright 2020 [employer]. All rights reserved. The codes documented in this report are preliminary and upon tobacco sieve operator reviewmay be revised to meet current compliance requirements. Electronically signed by Jeff Curry MD Jeff Curry M.D. 10/26/2023 10:51:57 AM Number of Addenda: 0 Note Initiated On: 10/26/2023 10:14 AM Jeff Curry MD ENDOSCOPY PROCEDURES Final Resul t from Last 3 Months or Most Recently Relevant to Health Maintenance Insurance [facility] Care Teams Immigration Patrol Inspector Relationship Specialty Start Date End Date Sergio Gomes MD PCP - General Internal Medicine 11/15/20
--- OUTSIDE RECORDS SUMMARY | 2024-12-22 15:27 | XMS_ITS | Referral Summary ---
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 Procedure Date: 10/26/2023 Procedure: Colonoscopy Indications: Screening for colorectal malignant neoplasm, Thisis the patient's first colonoscopy Providers: Jeff Curry M.D., Wilma Morgan CRNA (Anesthesia Staff), Claudia Batres RN, Dionte, Ground Water Technician Referring MD: Sergio Gomes M.D. Medicines: Monitored [...] bowel preparation was evaluated using the BBPS ([place] Bowel Preparation Scale) with scores of: Right [...] for malignantneoplasm of colon CPT copyright 2020 [employer]. All rights reserved. The codes documented in this report are preliminary and upon spool sander reviewmay be revised to meet current compliance requirements. Electronically signed by Jeff Curry MD Jeff Curry M.D. 10/26/2023 10:51:57 AM Number of Addenda: 0 Note Initiated On: 10/26/2023 10:14 AM Jeff Curry MD ENDOSCOPY PROCEDURES Final Resul t from Last 3 Months or Most Recently Relevant to Health Maintenance Insurance [facility] Care Teams Construction Supervisor/Carpenter Relationship Specialty Start Date End Date Sergio Gomes MD PCP - General Internal Medicine 11/15/20
[2024-12-22 15:28] VITALS: BP 130/80; PULSE 120; RESP 20; TEMP 36.6; O2SAT 98
--- NOTE | 2024-12-22 15:42 | ED.ABDPAIN ---
HPI - Abdominal Pain General Chief Complaint: Abdominal Pain Stated Complaint: stomach pain Source: patient and RN notes reviewed Mode of arrival: ambulatory Limitations: no limitations History of Present Illness HPI narrative: 49-year-old male presented for complaint of diarrhea and periumbilical abdominal pain. Onset yesterday. Endorses having loose stools about every hour. Has not eaten anything today, he is drinking gatorade. Denies vomiting or fever, hematochezia, melena, chest pain or palpitations. Has not tried anything for symptoms. Rates pain 08/29. Denies sick contacts. Related Data Allergies Allergy/AdvReac Type Severity Reaction Status Date / Time No Known Allergies Allergy Verified 12/22/24 15:38 Review of Systems Review of Systems: CONSTITUTIONAL: Denies body aches, fever, chills ENT: Denies rhinorrhea, congestion CARDIOVASCULAR: Denies chest pain, palpitations, or edema. RESPIRATORY: Denies cough or dyspnea. GASTROINTESTINAL: Endorses abdominal pain, nausea, diarrhea. Denies hematochezia, melena, hematemesis GENITOURINARY: Denies dysuria, hematuria, or CVA tenderness. SKIN: Denies rash MUSCULOSKELETAL: Denies back pain, joint pain, or myalgia. NEUROLOGIC: Denies headache, numbness, tingling, or weakness. All systems reviewed & are unremarkable except as noted in HPI and below PMFSH Past Medical History Medical History Ear infection Seasonal allergies Surgical History Surgical History History of appendectomy Family History Family History Other Hypertension Social History Social History Smoking packs per day: 0.5 Smoking cigarettes per day: 10.0 Smoking status: Current every day smoker Alcohol intake: never Substance use: never Living arrangements: with family Gender identity (if verbalized by the patient): Male Comments At time of signature, I have reviewed and agree with nursing past medical, surgical, social and family history unless otherwise noted. Please see nursing chart for further information. There is no relevant family history pertinent to the presenting complaint Exam Narrative: GENERAL: mildly ill-appearing, and in no acute distress. EYES: EOMI. Conjunctivae normal. ENT: Mucous membranes pink and moist. CHEST: No respiratory distress. Clear to auscultation. HEART: Regular rate and rhythm. No murmur appreciated. Normal peripheral pulses. ABDOMEN: abd soft, normal active bowel sounds. Tender abdomen to umbilical area, mildly distended, No guarding, rebound tenderness, asymmetry EXTREMITIES: Normal range of motion. No edema. SKIN: Warm, dry, no rash. Capillary refill normal. Normal skin turgor. NEURO: No focal deficits. Alert and oriented x3. PSYCH: Normal affect. Course Course Emergency Course: Patient is aware of diagnosis, understands and agrees to treatment plan. Anticipatory guidance given. Patient agrees to follow-up as directed and is aware of reasons to seek care at the emergency department. Portions of this record may have been created with voice recognition software Level of Care: Express Care Visit Vital Signs Vital signs: Vital Signs Temperature 97.8 F 12/22/24 15:28 Pulse Rate 120 H 12/22/24 15:28 Respiratory Rate 20 12/22/24 15:28 Blood Pressure 130/80 12/22/24 15:28 Pulse Oximetry 98 12/22/24 15:28 Oxygen Delivery Room Air 12/22/24 15:28 Temperature 97.8 F 12/22/24 15:28 Pulse Rate 120 H 12/22/24 15:28 Respiratory Rate 20 12/22/24 15:28 Blood Pressure 130/80 12/22/24 15:28 Pulse Oximetry 98 12/22/24 15:28 Oxygen Delivery Room Air 12/22/24 15:28 MDM - Abdominal Pain MDM Narrative Medical decision making narrative: Discussed physical exam findings c/w acute diarrhea; mild umbilical pain. Discussed ER transfer for c/o abdominal pain, pt states the pain is 3/10, mostly when it is touched. He does not want to go to the ER at this time, says he will try imodium. Advised supportive measures and signs/symptoms to go to the ER. Pt is appropriate for outpt treatment and f/u. Differential Diagnosis Differential diagnosis: Likely abdominal pain, constipation, diverticulitis, gastroenteritis, pancreatitis and small bowel obstruction Discharge Plan Discharge Clinical Impression: Acute diarrhea Patient Disposition: Home Condition: Stable Instructions: Acute Diarrhea (ED), Abdominal Pain (ED) Additional Instructions: Stay hydrated. Take small sips of fluid containing electrolytes frequently. Clear liquids (broth, jello, tea, sprite, pedialyte) [place] foods (bananas, rice, applesauce, toast, crackers) Avoid fatty, greasy, fried or spicy foods. Limit dairy until symptoms are improved. [id number] Imodium according to package directions Recommend probiotic such as align or lactobacillus to help with symptoms. You should go to the hospital if you experience persistent nausea and vomiting that does not resolve and does not allow you to tolerate any food or fluids, fevers, increasing abdominal pain, persistent diarrhea, dizziness, fainting, or for any other concerns. Follow up with primary care provider in 3 days. Patient Language: Congolese Follow-up/Referrals: Eliseo,Sergio Corey MD [Primary Care Provider] - Time of Disposition: 15:43
== END 2024-12-22 15:45 | disposition home or self-care (01) ==
PROVIDERS: Emergency Provider Nurse Practitioner Family; PCP Internal Medicine
DX: R19.7 Diarrhea, unspecified (principal); F17.210 Nicotine dependence, cigarettes, uncomplicated
CPT/HCPCS: 99211; G0463

== ENCOUNTER 2025-05-12 19:28 | Emergency (ER) | payer OTHER, SELFPAY ==
--- NOTE | 2025-05-12 19:30 | ED_ITS ---
HPI - Ear Problem General Chief complaint: Ear Stated complaint: right ear/fatigue Time Seen by Provider: 05/12/25 19:40 Source: patient and RN notes reviewed Mode of arrival: ambulatory Limitations: no limitations History of Present Illness HPI Narrative: 49-year-old male presents with concern for right ear pain and fullness, body aches, fatigue and cough. He reports symptoms for 1 week. He has not taken any ahqx-cor-dmmifmq medications for his symptoms. He denies chest pain or shortness of breath MD Complaint: ear pain Related Data Allergies Allergy/AdvReac Type Severity Reaction Status Date / Time No Known Allergies Allergy Verified 05/12/25 19:29 Review of Systems 2 Review of Systems: CONSTITUTIONAL: Reports fatigue, malaise. Denies chills, sweats, or fever. EYES: Denies visual changes, redness, or discharge. ENT: Reports mild rhinorrhea, congestion. Denies sinus pain. Reports otalgia. Denies sore throat. CARDIOVASCULAR: Denies chest pain, palpitations, or edema. RESPIRATORY: Reports cough. Denies dyspnea. GASTROINTESTINAL: Denies abdominal pain, nausea, vomiting, diarrhea SKIN: Denies rash or itching. MUSCULOSKELETAL: Denies myalgia. NEUROLOGIC: Denies headache. All systems reviewed & are unremarkable except as noted in HPI and below PMFSH Past Medical History Medical History Ear infection Seasonal allergies Surgical History Surgical History History of appendectomy Family History Family History Other Hypertension Social History Social History Smoking packs per day: 0.5 Smoking cigarettes per day: 10.0 Smoking status: Current every day smoker Alcohol intake: never Substance use: never Living arrangements: with family Gender identity (if verbalized by the patient): Male Comments At time of signature, agree with nursing past medical, surgical, social and f amily history. There is no relevant family history pertinent to the presenting complaint Exam Narrative: GENERAL: Well-appearing, well-nourished, and in no acute distress. HEAD: Normocephalic EYES: PERRLA, conjunctivae clear ENT: Nares clear, turbinates edematous and erythematous, clear discharge. Mucous membranes moist. TM pearly iraheta with dull light reflex bilaterally; no tragal tenderness. Oropharynx not erythematous without lesions. Tonsils not enlarged and without exudate, no drooling, no hoarseness, no trismus, uvula midline. NECK: Supple. No lymphadenopathy CHEST: Clear to auscultation, breath sounds equal. No wheezing, rhonchi, rales, or stridor. No respiratory distress, speaks in full sentences. HEART: Regular rate and rhythm. No murmur heard. SKIN: Warm, dry, no rash. NEURO: Alert and oriented x3. PSYCH: Normal mood and affect Course Course Emergency Course: Patient is aware of diagnosis, understands and agrees to treatment plan. Anticipatory guidance given. Patient agrees to follow-up as directed and is aware of reasons to seek care at the emergency department. Portions of this record may have been created with voice recognition software Level of Care: Express Care Visit Vital Signs Vital signs: Reviewed. Critical Care Time Critical Care Time Critical Care Time: No Discharge Plan Discharge Clinical Impression: Sinusitis Patient Disposition: Home Condition: Stable Instructions: Antibiotic Form, Sinusitis (ED) Additional Instructions: Take medications prescribed Nonprescription pain medications, such as acetaminophen (eg, Tylenol) or ibuprofen (eg, Motrin, Advil), are recommended for pain. Flushing the nose and sinuses with a saline solution several times per day has been proven to decrease pain associated with congestion and shorten the duration of symptoms. Nasal steroids (such as Flonase, 2 sprays in each nostril daily) can help to reduce swelling inside the nose, usually within two to three days. These drugs have few side effects and relieve symptoms in most people. Medications to thin secretions (such as guaifenesin) may help to clear mucus. Please follow-up with your primary care doctor in the next 1-2 days. If you cannot follow-up with your primary care doctor please go to the ED for any urgent issues. If you have any worsening of symptoms or any other concerns please go to the ED immediately. Patient Language: Mauritanian Prescriptions: New methylprednisolone [Medrol (João)] 4 mg tablets,dose pack See Rx Instructions .ROUTE .COMPLEX Qty: 21 0RF Rx Instructions: orally per package directions amoxicillin-pot clavulanate 875-125 mg tablet 1 tablet PO Q12H 10 Days Qty: 20 0RF Follow-up/Referrals: Eliseo,Sergio Corey MD [Primary Care Provider] Time of Disposition: 19:57
--- OUTSIDE RECORDS SUMMARY | 2025-05-12 19:30 | XMS_ITS | Data Portability ---
Author Organization [place] [facility]- Address [address] [facility] [place] [address] Assessment No assessment recorded. Plan of Treatment Reminders Order Date Submit Date Provider Last Modified By Organization Details Last Modified Time Details Appointments None record ed. Lab None record ed. Referral None record ed. Procedures None record ed. Surgeries None record ed. Imaging None record ed. Medication Orders None record ed. Patient TargetsNo targets recorded. Patient Instructions Encounter Date Encounter Id Patient Instructions Last Modified By Organization Details Last Modified Time 03/12/2022 [id number] influenza (flu) vaccine (inactivated or recombinant): what you need to know [email or web address] Not available 03/12/2022 14:25:55 Reason for Referral None Reported. Problems No Known Problems Medical Equipment None Reported. Allergies No known drug allergies Medications Not known to be on any medication Vitals None Recorded Social History None recorded. Functional Status None recorded. Mental Status None recorded. Family History Nothing Reported. Medical History No medical history recorded. Immunizations Vaccine Type Date Status Note Provider Nam e and Address Organization Details Recorded Time Influenza, split virus, quadrivalent, PF 03/12/2022 completed [facility], 03/12/2022 14:49:01 Past Encounters Encounter ID Performer Location Encounter Start Date Encounter Closed Date Diagnosis/Indication Diagnosis SNOMED-CT Code Diagnosis ICD10 Code Diagnosis IMO Codes Diagnosis Note [id number] Nayla Bentley MD [facility] [address] 03/12/2022 14:22:21 03/13/2022 12:05:35 Active or passive immunization [id number] Health Concerns Section Related Observation LastModified by Organization Detai ls LastModified Time None Recorded Concern Status LastModified by Organization Details LastModified Time None Recorded Advance Directives Directive None Recorded Payers Insurance Date Sequence Insurance Name Policy Number Policy Bose Covered Member ID Bose Member ID Guarantor Name 03/05/2022 1 [facility] (MEDICAID HMO) [id number] Yue Gray [id number] Josse Gray 04/03/2022 1 [facility] (MEDICAID HMO) [id number] Josse Gray [id number] Josse Gray Notes Date Note Type Note Provider Name and Address Organization Details Recorded Time 03/12/2022 text/html VFC Eligibility Screening RecordReported by Patient Lizbeth Curry [facility] [place] [facility], 03/12/2022 14:26:07
--- OUTSIDE RECORDS SUMMARY | 2025-05-12 19:30 | XMS_ITS | Encounter Summary ---
Author Organization [facility] Healthcare Address [address] [place] [address] Care Team Providers Care Mat Cutter Name Role Phone Sergio Gomes MD Primary Care Provider Reason for Visit * Auth/Cert (Routine) Specialty Diagnoses / Procedures Referred By Bassam dior Referred To Contact Diagnoses Abdominal pain Intractable vomiting Abdominal pain [R10.9] Intractable vomiting [R11.10] Procedures SD COLONOSCOPY FLX DX W/COLLJ SPEC WHEN PFRMD ESOPHAGOGASTRODUODENOSCOPY Referral ID Status Reason Start Date Expiration Date Visits Re quested Visits Authorized [id number] 1 1 Encounter Details Date Type Department Care Team (Late st Contact Info) Description 04/06/2025 Hospital Encounter [facility] [address] [place] [address] Roselia Barnard MD [address] [place] [address] [address] HUBER [address] [place] [address] Social History Tobacco Use Types Packs/Day Years Used Date Smoking Tobacco: Every Day Cigarettes Smokeless Tobacco: Never Alcohol Use Standard Drinks/Week Comments No 0 [...] points, staff should administer the PHQ-9) 0 12/28/2024 Personal Safety Answer Date Recorded Have you ever been in or are you currently in a harmful physical or emotional relationship or is someone making you feel afraid or unsafe? 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 Gender Identity Male 09/17/2023 2:57 PM CDT Sexual Orientation Straight 09/17/2023 2: 57 PM CDT documented as of this encounter Functional Status * In the past year, patient experienced: Question Answer Date of Assessment Author One or more falls in the las t year 0 12/28/2024 10:22 AM Zora Killian MA * BP Location Answer Date of Assessment Author Left arm 12/28/2024 10:22 AM Zora Lerner MA * BP Location Answer Date of Assessment Author Left arm 12/28/2024 10:22 AM Zora Lerner MA documented as of this encounter Plan of Treatment Not on file documented as of this encounter Visit Diagnoses Diagnosis Abdominal pain Abdominal pain, unspecified site Intractable vomiting Persistent vomiting documented in this encounter Admitting Diagnoses Diagnosis Abdominal pain Abdominal pain, unspecified site Intractable vomiting Persistent vomiting documented in this encounter Care Teams Mat Cutter Relationship Specialty Start Date End Date Sergio Gomes MD PCP - General Internal Medicine 11/15/20 documented as of this encounter
--- OUTSIDE RECORDS SUMMARY | 2025-05-12 19:30 | XMS_ITS | Clinical Summary ---
Author Organization [facility] Address [address] [place] [address] Phone Care Team Providers Care Pharmaceutical Process Engineer Name Role Phone Sergio Gomes MD Primary [...] rs (Adults With 1 Tdap) 06/17/2020 06/17/2010 Cologuard 2021 Colonoscopy 2021 Colorectal Cancer Screening 2021 Immunochemical Fecal Occult Blood 2021 Influenza Immunization (#1) 2025 09/2 06/2021, 03/28/2020 SARS-COV-2 Immunization (2 - season) 2025 08/27/2020 Respiratory Syncytial Virus (RSV) Immunization (Adult) [...] this topic Insurance MEDICAID [place] Care Teams Pharmaceutical Process Engineer Relationship Specialty Start Date End Date Sergio Gomes MD [address] [place] [address] [address] HU[address] [place] [phone] PCP - General Internal Medicine 10/09/23
--- OUTSIDE RECORDS SUMMARY | 2025-05-12 19:30 | XMS_ITS | Clinical Summary ---
Author Organization [facility] Address [address] [place] [address] Care Team Providers Care Lamp Cleaner Street Light Name Role Phone Sergio Gomes MD Primary Care Provider Allergies No known active allergies Medications dicyclomine (BENTYL) 10 mg capsule Take 1 capsule (10 mg total) by mouth 4 (four) times a day before meals and nightly 60 capsule 3 01/26/2025 Active Active Problems Problem Noted Date Diagnosed Date Abdominal pain 12/28/2024 Intractable vomiting 12/28/2024 Encounter for screening for malignant neoplasm o f colon 09/01/2023 History of 2019 novel coronavirus disease (COVID -19) 11/21/2021 Edema leg 11/21/2021 Tobacco abuse 11/15/2020 Assessment & Plan (12/28/2024 12:40 PM CDT): Acute maxillary sinusitis 05/09/2015 Overview (09/25/2016): Acute maxillary sinusitis, recurrence not specified Anxiety 11/05/2013 Overview (09/25/2016): Anxiety Atopic rhinitis 11/05/2013 Overview (09/26/2016): Allergic rhinitis Male erectile disorder 11/05/2013 Overview (09/26/2016): Erectile dysfunction 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 Insomnia 10/11/2012 Overview (09/26/2016): Insomnia Encounters Date Type Department Care Team Description 04/06/2025 Hospital Encounter [facility] [address] [place] [address] Roselia Barnard MD 03/23/2025 Telephone [facility] [place] [address] [facility] [address] [place] [address] Sergio Gomes MD Medical Question/Miscellaneou s from Last 3 Months Immunizations Immunization Administration Dates Next Due Influenza, Quadrivalent, Spl it, Preservative Free, Intramuscular 03/28/2020 Influenza, Unspecified 12/28/2024(Deferr ed: Patient Refused),04/13/2023(Deferred: Patient Refused),03/22/2021(Deferred: Patient Refused),02/15/2021(Deferred: Patient Refused) [employer] ([employer]) SARS-CoV-2 Vaccination 08/27/2020 Tdap 06/17/2010 Surgical [...] on file 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 Gender Identity Male 09/17/2023 2:57 PM CDT Sexual Orientation Straight 09/17/2023 2: 57 PM CDT Last Filed Vital Signs Vital Sign Reading Time Taken Comments Blood Pressure 114/70 12/28/2024 10:22 AM CDT Pulse 105 12/28/2024 10:22 AM CDT Temperature 36.4 C (97.6 F) 12/28/2024 10:22 AM CDT Respiratory Rate 16 12/28/2024 10:22 AM CDT Oxygen Saturation 97% 12/28/2024 10:22 AM CDT Inhaled Oxygen Concentration - - Weight 86.2 kg (190 lb) 12/28/2024 10:22 AM CDT Height 172.7 cm (5' 8) 12/28/2024 10:22 AM CDT Body Mass Index 28.89 12/28/2024 10:22 AM CDT Plan of Treatment Health Maintenance Due Date Last Done Comments Hepatitis C Screening 1975 Hepatitis B Screening 1994 Pneumococcal vaccine <65 (1 of 2 - PCV) 11/02/1995 Regular Well Visit/Exam 18-64 02/14/2025 02/15/2024, 11/21/2021 Influenza Vaccine (#1) 2025 03/28/2020 Depression Screening 12/28/2025 12/28/2024, 02/15/2024, 11/21/2021, Additional history exists Covid-19 Vaccine (2 - 2024- season) 2026 08/27/2020 Postponed from 02/20/2025 (Patient declined, but will receive in the future) DTaP/Tdap/Td Vaccine (2 - Td or Tdap) 01/28/2028 06/17/2010 Postponed from 06/17/2020 (Insurance / Financial) Colon Cancer Screening-Colonoscopy 10/25/2033 10/26/2023 Procedures Procedure Name Priority Date/Time Associated Diagnosis Comments COLONOSCOPY 10/26/2023 10:14 AM CDT from Last 3 Months or Most Recently Relevant to Health Maintenance Results * Colonoscopy (10/26/2023 10:14 AM CDT) Anatomical Region Laterality Modality Other Narrative Procedure Note Jeff Curry MD - 10/26/2023 10:14 AM CDT [facility] Patient Name: Josse Gray Procedure Date: 10/26/2023 10:14 AM Date of : 1975 Admit Type: Outpatient Age: 47 Gender: Male Note Status: Finalized Attending MD: Jeff Curry M.D. Procedure Date: 10/26/2023 Procedure: Colonoscopy Indications: Screening for colorectal malignant neoplasm, Thisis the patient's first colonoscopy Providers: Jeff Curry M.D., Wilma Morgan, MURIEL (Anesthesia Staff), Claudia Batres RN, Dionte, Operator Maintainer Referring MD: Sergio Gomes M.D. Medicines: Monitored [...] bowel preparation was evaluated using the BBPS (Pickerel Bowel Preparation Scale) with scores of: Right [...] for malignantneoplasm of colon CPT copyright 2020 [employer]. All rights reserved. The codes documented in this report are preliminary and upon x ray examiner of aircraft reviewmay be revised to meet current compliance requirements. Electronically signed by Jeff Curry MD Jeff Curry M.D. 10/26/2023 10:51:57 AM Number of Addenda: 0 Note Initiated On: 10/26/2023 10:14 AM Jeff Curry MD ENDOSCOPY PROCEDURES Final Resul t from Last 3 Months or Most Recently Relevant to Health Maintenance Insurance [facility] Care Teams Lamp Cleaner Street Light Relationship Specialty Start Date End Date Sergio Gomes MD [phone] (work) PCP - General Internal Medicine 11/15/20
[2025-05-12 19:31] VITALS: BP 164/100; PULSE 126; RESP 20; TEMP 36.1; O2SAT 98
[2025-05-12 19:38] VITALS: BP 146/100
[2025-05-15 11:48] LABS: EDCOVIDSCREEN Negative (Negative); EDINFLUASCREEN Negative (Negative); EDINFLUBSCREEN Negative (Negative)
[2025-05-15 11:48] LABS: EDSTREPNEGPOS1 Negative (Negative)
[2025-05-15 11:48] LABS: EDCOVIDSCREEN Negative (Negative); EDINFLUASCREEN Negative (Negative); EDINFLUBSCREEN Negative (Negative)
== END 2025-05-12 20:03 | disposition home or self-care (01) ==
PROVIDERS: Emergency Provider Nurse Practitioner; PCP Internal Medicine
DX: J32.9 Chronic sinusitis, unspecified (principal); Z20.822 Contact with and (suspected) exposure to COVID-19; F17.210 Nicotine dependence, cigarettes, uncomplicated
CPT/HCPCS: 87081; 87426; 87804; 87880; 99213; G0463